=== PATIENT | female | born 1990 | race Caucasian/White ===

== ENCOUNTER 2019-01-24 19:34 | Emergency (ER) | payer OTHER ==
[~2019-01-24] VITALS: Ht 165.1 cm; Wt 76.0 kg
[2019-01-24 19:42] VITALS: BP 133/79
[2019-01-24] MEDS ORDERED: AMOX-580 PO (20:32)
[2019-01-24] MEDS ORDERED: amox tr/potassium clavulanate 875/125mg TAB PO ONE (20:35)
== END 2019-01-24 20:45 | disposition home or self-care (01) ==
LOC: ER 19:35
DX: N61.0 Mastitis without abscess (principal); Z91.040 Latex allergy status; Z79.899 Other long term (current) drug therapy
CPT/HCPCS: 99283